=== PATIENT | female | born 1970 | race Two or more races ===

== ENCOUNTER → 2024-07-19 | Emergency (ER) | payer OTHER ==
[~2024-07-19] VITALS: Ht 154.9 cm; Wt 51.3 kg
[~2024-07-19] MED LIST: 0.9 % SODIUM CHLORIDE 1,000 ML IV SCH; CEFTRIAXONE SODIUM 2,000 MG VIAL IV ONE; CEFTRIAXONE SODIUM 2,000 MG VIAL ONE; DEXAMETHASONE SODIUM PHOSP/PF 10 MG/ML VIAL IV ONE; DEXAMETHASONE SODIUM PHOSPHATE 4 MG/ML VIAL ONE; DIPHENHYDRAMINE HCL 50 MG/ML VIAL 1ML ONE; LEVOTHYROXINE25 MCG PO; LORazepam 2 MG/ML VIAL IV PUSH ONE; LORazepam 2 MG/ML VIAL ONE; LevETIRAcetam 500 MG/5 ML VIAL IV ONE; LevETIRAcetam 500 MG/5 ML VIAL IV SCH; METHYLPREDNISOLONE SOD SUCC 125 MG VIAL ONE
[2024-07-19 22:05] LABS: PH,URINE 5.5 (5.0-8.0); URINE APPEARANCE Cloudy; URINE BILIRRUBIN Negative (NEGATIVE); URINE BLOOD Large; URINE COLOR Yellow; URINE GLUCOSE Negative (NEGATIVE); URINE KETONE 15 (NEGATIVE); URINE LEUKOCYTE Trace; URINE NITRATE Positive
[2024-07-19 22:09] LABS: URINE CAST 1.52 uL (0.0-1.40); URINE EPITHELIAL CELLS 124.3 uL (0.0-38.8); URINE RBC 881.3 uL (0.0-20.8); URINE WBC 92.9 uL (0.0-23.2)
[2024-07-19 22:09] LABS: PARTIAL THROMBOPLASTIN TIME 24.4 SECONDS (22.0-34.0); PROTHROMBIN TIME 10.9 SECONDS (9.0-11.5)
[2024-07-19 22:13] LABS: ALBUMIN 4.3 gm/dL (3.4-5.0); BILIRUBIN TOTAL 0.35 mg/dL (0.3-1.2); CALCIUM 8.9 mg/dL (8.5-10.1); CREATININE SERUM 0.89 mg/dL (0.55-1.02); GFR 75.52; GLOBULINA 3.1 G/DL (2.4-3.5); POTASSIUM 3.36 mEq/L (3.5-5.1); TOTAL PROTEIN 7.4 gm/dL (6.4-8.2)
[2024-07-19 22:18] LABS: HEMATOCRIT 29.1 % (36.0-45.00); HEMOGLOBIN 8.6 g/dL (12.0-15.00); MEAN CORPUSCULAR HEMOGLOBIN 20.3 pg (27.00-32.0); MEAN CORPUSCULAR HGB CONC 29.6 g/dl (32.0-36.0); PLATELET COUNT 415 K/uL (150-450); RED BLOOD COUNT 4.23 M/uL (4.00-6.00); RED CELL DISTRIBUTION WIDTH 19.1 % (11.5-14.5)
[2024-07-19 22:22] LABS: URINE BACTERIA > 9821.5 uL (0.0-1933); URINE MUCUS MODERATE; URINE PROTEIN 100 (NEGATIVE)
[2024-07-20 07:00] VITALS: BP 127/70; O2SAT 100
== END | disposition designated cancer center or children's hospital (05) ==
LOC: ER 20:55 → EDBD 22:55
PROVIDERS: General Practice
DX: C71.9 Malignant neoplasm of brain, unspecified (principal); S06.2X9A Diffuse traumatic brain injury with loss of consciousness of unspecified duration, initial encounter; X58.XXXA Exposure to other specified factors, initial encounter; Y93.9 Activity, unspecified; Y92.9 Unspecified place or not applicable; Y99.9 Unspecified external cause status; Z20.822 Contact with and (suspected) exposure to COVID-19; Z88.6 Allergy status to analgesic agent
CPT/HCPCS: 70546

== ENCOUNTER 2025-03-29 11:30 | Inpatient (IN) | payer OTHER ==
[~2025-03-29] VITALS: Ht 152.4 cm; Wt 56.7 kg
[~2025-03-29 11:30] MED LIST changes: -0.9 % SODIUM CHLORIDE 1,000 ML IV SCH; -CEFTRIAXONE SODIUM 2,000 MG VIAL IV ONE; -CEFTRIAXONE SODIUM 2,000 MG VIAL ONE; -DEXAMETHASONE SODIUM PHOSP/PF 10 MG/ML VIAL IV ONE; -DEXAMETHASONE SODIUM PHOSPHATE 4 MG/ML VIAL ONE; -DIPHENHYDRAMINE HCL 50 MG/ML VIAL 1ML ONE; -LORazepam 2 MG/ML VIAL IV PUSH ONE; -LORazepam 2 MG/ML VIAL ONE; -LevETIRAcetam 500 MG/5 ML VIAL IV ONE; -LevETIRAcetam 500 MG/5 ML VIAL IV SCH; -METHYLPREDNISOLONE SOD SUCC 125 MG VIAL ONE
[2025-03-29] MEDS ORDERED: KEPPRA500 MG PO (15:01)
[2025-03-29 15:37] LABS: RH POSITIVE
[2025-04-04] MEDS ORDERED: CEFAZOLIN SODIUM 1,000 MG VIAL ONE (06:58)
[2025-04-04] MEDS ORDERED: BUPIVACAINE HCL/MPF 0.5% 30ML VIAL ONE (07:20)
[2025-04-04] MEDS ORDERED: LIDOCAINE HCL 1%/EPINEPHRINE 20ML VIAL IJ ONE (07:20)
[2025-04-04] MEDS ORDERED: CHLORHEXIDINE GLUCONATE 120 ML BOTTLE TOP ONE (07:20)
[2025-04-04] MEDS ORDERED: POVIDONE-IODINE 118 ML BOTT TOP ONE (07:44)
[2025-04-04] MEDS ORDERED: THROMBIN,HU/FIBRINOGEN/CALCIUM 10 ML SYRINGE TOP ONE (07:44)
[2025-04-04] MEDS ORDERED: VISTASEAL DUAL APPICATOR 1 EACH APPL TOP ONE (09:08)
[2025-04-04] MEDS ORDERED: SUGAMMADEX SODIUM 200 MG/2 ML VIAL IV ONE (09:53)
[2025-04-04] MEDS ORDERED: RINGERS SOLUTION,LACTATED 1,000 ML IV SCH (10:20)
[2025-04-04] MEDS ORDERED: ACETAMINOPHEN 325 MG TABLET PO SCH (12:00)
[2025-04-04] MEDS ORDERED: ONDANSETRON HCL 2 MG/ML VIAL IV SCH (12:00)
[2025-04-04] MEDS ORDERED: MORPHINE SULFATE 4 MG/ML VIAL IV ONE (12:15)
[2025-04-04 12:21] LABS: BASO % 0.4 % (0.1-1.2); EOS # 0.07 (0.04-0.54); EOS % 0.6 % (0.7-7.0); HEMATOCRIT 38.5 % (34.1-44.9); LYMPH # 1.25 (1.18-3.74); LYMPH % 10.4 % (19.3-53.1); MEAN CORPUSCULAR HEMOGLOBIN 30.6 pg (25.6-32.2); MONO # 0.44 (0.24-0.82); MONO % 3.7 % (4.7-12.5); NEUT # 10.08 (1.56-6.13); PLATELET COUNT 333 K/uL (163-369); RED BLOOD COUNT 4.25 M/uL (3.93-5.22); RED CELL DISTRIBUTION WIDTH 12.3 % (11.6-14.4)
[2025-04-04] MEDS ORDERED: CYCLOBENZAPRINE HCL 5 MG TABLET PO SCH (13:09)
[2025-04-04 13:36] VITALS: BP 124/79; O2SAT 98
[2025-04-04 15:58] VITALS: BP 121/73
[2025-04-04 17:00] LABS: BASO % 0.3 % (0.1-1.2); HEMATOCRIT 40.7 % (34.1-44.9); HEMOGLOBIN 13.5 g/dL (11.2-15.7); LYMPH # 0.71 (1.18-3.74); LYMPH % 6.9 % (19.3-53.1); MEAN CORPUSCULAR HEMOGLOBIN 29.9 pg (25.6-32.2); MONO # 0.39 (0.24-0.82); MONO % 3.8 % (4.7-12.5); NEUT # 9.09 (1.56-6.13); NEUT % 88.4 % (34.0-71.1); PLATELET COUNT 401 K/uL (163-369); RED BLOOD COUNT 4.52 M/uL (3.93-5.22); RED CELL DISTRIBUTION WIDTH 12.2 % (11.6-14.4)
[2025-04-04 17:21] LABS: CALCIUM 8.9 mg/dL (8.5-10.1); CREATININE SERUM 0.56 mg/dL (0.55-1.02); GFR 113.68; POTASSIUM 4.7 mEq/L (3.5-5.1)
[2025-04-04] MEDS ORDERED: CODEINE/PROMETHAZINE HCL 1 ML ML PO PRN (18:00)
[2025-04-04 20:54] VITALS: BP 124/78
[2025-04-04] MEDS ORDERED: LevETIRAcetam 500 MG TAB. PO SCH (21:00)
[2025-04-05] VITALS: BP 117/67; BP 140/80
[2025-04-05] MEDS ORDERED: SYNTHROID 137 MCG PO SCH (06:00)
[2025-04-05 06:56] LABS: BASO % 0.6 % (0.1-1.2); EOS # 0.09 (0.04-0.54); EOS % 1.8 % (0.7-7.0); HEMOGLOBIN 11.3 g/dL (11.2-15.7); LYMPH # 1.18 (1.18-3.74); LYMPH % 24.2 % (19.3-53.1); MEAN CORPUSCULAR HEMOGLOBIN 31.5 pg (25.6-32.2); MONO # 0.39 (0.24-0.82); NEUT # 3.15 (1.56-6.13); NEUT % 64.6 % (34.0-71.1); PLATELET COUNT 336 K/uL (163-369); RED BLOOD COUNT 3.59 M/uL (3.93-5.22); RED CELL DISTRIBUTION WIDTH 12.4 % (11.6-14.4)
[2025-04-05 07:50] LABS: CALCIUM 7.8 mg/dL (8.5-10.1); CREATININE SERUM 0.54 mg/dL (0.55-1.02); GFR 118.55; POTASSIUM 4.14 mEq/L (3.5-5.1)
[2025-04-05 08:21] VITALS: BP 102/67
== END 2025-04-05 09:32 | disposition home or self-care (01) | DRG 743 ==
LOC: O/R 04-04 05:47 → OB/GYN 04-04 05:47 → SURH 04-04 07:00 → OB/GYN 04-04 10:50 → SURH 04-04 11:30 → OB/GYN 04-04 15:27
PROVIDERS: Student in an Organized Health Care Education/Training Program; ADMIT Obstetrics & Gynecology Gynecology; ATTEND Obstetrics & Gynecology Gynecology
PROC: 0UT74ZZ Resection of Bilateral Fallopian Tubes, Percutaneous Endoscopic Approach (ICD-10-PCS; 2025-04-04)
PROC: 0DNW4ZZ Release Peritoneum, Percutaneous Endoscopic Approach (ICD-10-PCS; 2025-04-04)
PROC: 0TNB4ZZ Release Bladder, Percutaneous Endoscopic Approach (ICD-10-PCS; 2025-04-04)
PROC: 0DNJ4ZZ Release Appendix, Percutaneous Endoscopic Approach (ICD-10-PCS; 2025-04-04)
PROC: 0DTJ4ZZ Resection of Appendix, Percutaneous Endoscopic Approach (ICD-10-PCS; 2025-04-04)
PROC: 0UT94ZZ Resection of Uterus, Percutaneous Endoscopic Approach (ICD-10-PCS; principal; 2025-04-04 07:00)
DX: D25.1 Intramural leiomyoma of uterus (principal); D25.2 Subserosal leiomyoma of uterus; N84.0 Polyp of corpus uteri; N73.6 Female pelvic peritoneal adhesions (postinfective); N92.1 Excessive and frequent menstruation with irregular cycle

== ENCOUNTER 2025-04-11 08:27 | Inpatient (IN) | payer OTHER ==
[~2025-04-11] VITALS: Ht 157.5 cm; Wt 56.7 kg
[~2025-04-11 08:27] MED LIST changes: +KEPPRA500 MG PO
[2025-04-11] MEDS ORDERED: METHYLPREDNISOLONE SOD SUCC 40 MG VIAL ONE (08:53)
[2025-04-11] MEDS ORDERED: PIPERACILLIN/TAZOBACTAM SODIUM 3.375 GM VIAL IV ONE ×2 (08:53→09:00)
[2025-04-11] MEDS ORDERED: WATER FOR INJ.,BACTERIOSTATIC 30 ML VIAL IJ ONE (08:53)
[2025-04-11] MEDS ORDERED: DIPHENHYDRAMINE HCL 50 MG/ML VIAL 1ML ONE (08:53)
[2025-04-11] MEDS ORDERED: FAMOTIDINE/PF 20 MG/2 ML VIAL ONE ×2 (08:54→09:01)
[2025-04-11] MEDS ORDERED: FAMOtidine 10 MG/ML (4ML VIAL) IV ONE (09:00)
[2025-04-11] MEDS ORDERED: DIPHENHYDRAMINE HCL 50 MG/ML VIAL 1ML IV ONE (09:00)
[2025-04-11] MEDS ORDERED: METHYLPREDNISOLONE SOD SUCC 40 MG VIAL IV ONE (09:00)
[2025-04-11] MEDS ORDERED: 0.9 % SODIUM CHLORIDE 1,000 ML IV ONE (09:00)
[2025-04-11 09:26] VITALS: BP 106/71
[2025-04-11 09:42] LABS: BASO % 0.4 % (0.1-1.2); EOS # 0.19 (0.04-0.54); EOS % 1.9 % (0.7-7.0); HEMATOCRIT 37.6 % (34.1-44.9); HEMOGLOBIN 12.4 g/dL (11.2-15.7); LYMPH # 0.86 (1.18-3.74); LYMPH % 8.7 % (19.3-53.1); MEAN CORPUSCULAR HEMOGLOBIN 30.2 pg (25.6-32.2); MONO # 0.48 (0.24-0.82); MONO % 4.8 % (4.7-12.5); NEUT # 8.28 (1.56-6.13); NEUT % 83.5 % (34.0-71.1); PLATELET COUNT 383 K/uL (163-369); RED CELL DISTRIBUTION WIDTH 12.5 % (11.6-14.4)
[2025-04-11 09:54] LABS: ERYTHROCYTE SEDIMENTATION RATE 102 mm/hr (0-30)
[2025-04-11 10:02] LABS: INR 1.07; PROTHROMBIN TIME 11.6 SECONDS (9.0-11.5)
[2025-04-11 10:06] LABS: ALBUMIN 3.5 gm/dL (3.4-5.0); BILIRUBIN TOTAL 0.47 mg/dL (0.3-1.2); CALCIUM 8.7 mg/dL (8.5-10.1); CREATININE SERUM 0.65 mg/dL (0.55-1.02); GFR 95.35; GLOBULINA 4.2 G/DL (2.4-3.5); POTASSIUM 4.03 mEq/L (3.5-5.1); TOTAL PROTEIN 7.7 gm/dL (6.4-8.2)
[2025-04-11 10:19] LABS: C-REACTIVE PROTEIN 23.1 MG/DL (0.00-0.29)
[2025-04-11 10:21] LABS: D DIMER 1.14 MG/L; PARTIAL THROMBOPLASTIN TIME 32.7 SECONDS (22.0-34.0)
[2025-04-11 10:38] LABS: FIBRINOGEN > 860 mg/dL (187.0-446.0)
[2025-04-11 11:14] LABS: PH,URINE 6.5 (5.0-8.0); URINE APPEARANCE Clear; URINE BILIRRUBIN Negative (NEGATIVE); URINE BLOOD Negative; URINE COLOR Yellow; URINE GLUCOSE Negative (NEGATIVE); URINE KETONE Trace (NEGATIVE); URINE LEUKOCYTE Negative; URINE NITRATE Negative; URINE PROTEIN Negative (NEGATIVE); URINE UROBILINOGEN 0.2 E.U./dl
[2025-04-11 11:18] LABS: URINE EPITHELIAL CELLS 14.7 uL (0.0-38.8); URINE RBC 31.6 uL (0.0-20.8); URINE WBC 9.4 uL (0.0-23.2)
[2025-04-11 11:25] VITALS: BP 106/71
[2025-04-11] MEDS ORDERED: PIPERACILLIN/TAZOBACTAM SODIUM 3.375 GM in 0.9 % SODIUM CHLORIDE 100 ML IV SCH (14:00)
[2025-04-11] MEDS ORDERED: ONDANSETRON HCL 2 MG/ML VIAL IV PRN (15:15)
[2025-04-11 16:01] LABS: CALCIUM 8.8 mg/dL (8.5-10.1); CREATININE SERUM 0.57 mg/dL (0.55-1.02); GFR 110.95; POTASSIUM 4.38 mEq/L (3.5-5.1)
[2025-04-11 16:04] VITALS: BP 107/74
[2025-04-11] MEDS ORDERED: VANCOMYCIN HCL 5 MG/ML REDILUIDO IV SCH (17:00)
[2025-04-11] MEDS ORDERED: ENOXAPARIN SODIUM 40 MG/0.4 ML SYRINGE SUBCUTANEO NR (19:20)
[2025-04-11] MEDS ORDERED: LevETIRAcetam 500 MG TAB. PO SCH (21:00)
[2025-04-11] MEDS ORDERED: FAMOTIDINE/PF 20 MG/2 ML VIAL IV PUSH SCH (21:00)
[2025-04-12 01:34] VITALS: BP 101/67
[2025-04-12] MEDS ORDERED: PATIENTS OWN MEDICATION (MEDICAMENTO EN PISO) PO SCH (06:00)
[2025-04-12 07:01] LABS: BASO % 0.4 % (0.1-1.2); EOS # 0.18 (0.04-0.54); HEMATOCRIT 33.3 % (34.1-44.9); LYMPH # 1.25 (1.18-3.74); LYMPH % 13.8 % (19.3-53.1); MONO % 5.5 % (4.7-12.5); NEUT # 7.06 (1.56-6.13); NEUT % 77.6 % (34.0-71.1); PLATELET COUNT 409 K/uL (163-369); RED BLOOD COUNT 3.67 M/uL (3.93-5.22); RED CELL DISTRIBUTION WIDTH 12.6 % (11.6-14.4)
[2025-04-12 07:31] LABS: CREATININE SERUM 0.48 mg/dL (0.55-1.02); GFR 135.29; MAGNESIUM 2.3 mg/dL (1.8-2.4); POTASSIUM 4.02 mEq/L (3.5-5.1)
[2025-04-12 07:34] LABS: TSH 0.145 uIU/mL (0.358-3.74)
[2025-04-12 08:00] VITALS: BP 119/76
[2025-04-12] MEDS ORDERED: SODIUM CL 0.9% 500 ML IV.SOLN. ONE (08:50)
[2025-04-12] MEDS ORDERED: MUPIROCIN 22 GM OINT..GM TUBE NASAL SCH (09:00)
[2025-04-12] MEDS ORDERED: CHLORHEXIDINE GLUCONATE 120 ML BOTTLE TOP SCH (09:00)
[2025-04-12] MEDS ORDERED: VANCOMYCIN HCL 5 MG/ML REDILUIDO IV SCH (13:00)
[2025-04-12 16:06] VITALS: BP 109/72
[2025-04-12] MEDS ORDERED: CEFAZOLIN SODIUM 2,000 MG in 0.9 % SODIUM CHLORIDE 100 ML IV SCH (17:00)
[2025-04-12] MEDS ORDERED: ENOXAPARIN SODIUM 40 MG/0.4 ML SYRINGE SUBCUTANEO SCH (17:00)
[2025-04-13 01:40] VITALS: BP 131/84
[2025-04-13 08:00] VITALS: BP 113/70
[2025-04-13] MEDS ORDERED: LACTOBACILLUS ACIDOPHILUS 1 CAP CAP PO SCH (09:00)
[2025-04-13 16:40] VITALS: BP 99/64; O2SAT 100
[2025-04-14 00:43] VITALS: BP 108/61; O2SAT 100
[2025-04-14 08:26] VITALS: BP 121/78; O2SAT 97
[2025-04-14 16:38] VITALS: BP 109/71; O2SAT 97
== END 2025-04-14 18:00 | disposition home or self-care (01) | DRG 863 ==
LOC: ER 08:30 → OB/GYN 09:28 → SURH 04-13 15:13
PROVIDERS: General Practice; Internal Medicine Geriatric Medicine; Internal Medicine Infectious Disease; ADMIT Student in an Organized Health Care Education/Training Program; ATTEND Student in an Organized Health Care Education/Training Program
PROC: BW21Y0Z Computerized Tomography (CT Scan) of Abdomen and Pelvis using Other Contrast, Unenhanced and Enhanced (ICD-10-PCS; principal; 2025-04-11)
PROC: BW21ZZZ Computerized Tomography (CT Scan) of Abdomen and Pelvis (ICD-10-PCS; 2025-04-11)
DX: T81.49XA Infection following a procedure, other surgical site, initial encounter (principal); L03.90 Cellulitis, unspecified; Y65.8 Other specified misadventures during surgical and medical care; B95.61 Methicillin susceptible Staphylococcus aureus infection as the cause of diseases classified elsewhere